=== PATIENT | female | born 1950 | race Caucasian/White ===

== ENCOUNTER 2017-05-19 01:56 | Emergency (ER) | payer BC, MEDICARE ==
[~2017-05-19] VITALS: Ht 160 cm; Wt 79.8 kg
[~2017-05-19 01:56] MED LIST: ATOR10TA PO; LEVO88TA2 PO; LISI-334 PO
[2017-05-19 02:13] VITALS: BP 235/116
[2017-05-19] MEDS ORDERED: TETRACAINE 0.5% OPHTH SOLUTION 4ML BOTTLE. ONE (02:42)
[2017-05-19] MEDS ORDERED: TETRACAINE 0.5% OPHTH SOLUTION 4ML BOTTLE. OS ONE (02:45)
[2017-05-19] MEDS ORDERED: HYDROcodone/APAP 5/325MG 1 TAB TABLET PO ONE (03:00)
[2017-05-19] MEDS ORDERED: ERYTHROMYCIN 0.5% OPHTH OINTMENT 1GM TUBE. OS ONE (03:00)
[2017-05-19] MEDS ORDERED: KETOROLAC 30 MG/ML INJ. IM ONE (03:00)
[2017-05-19] MEDS ORDERED: methylPREDNISolone SOD SUCC PF 125 MG/2 ML VIAL. IM ONE (03:00)
[2017-05-19] MEDS ORDERED: GENT5DRO3 OS (04:04)
--- NOTE | 2017-05-19 04:04 | PHYS DOC ---
Past Medical History Past Medical History: Cancer, Diabetes-Type II, High Cholesterol, Hypertension , Hypothyroid, Other Additional Past Medical Histor: ORAL CA, CATARACTS Past Surgical History: Cancer Surgery, Cholecystectomy, Hysterectomy, Tonsillectomy, Other Additional Past Surgical Histo: L. ARM Alcohol Use: Rarely Drug Use: None Adult General Chief Complaint Chief Complaint: EYE PROBLEMS HPI HPI 67-year-old female with a history of chronic recurrent blepharitis for many years now presents to the emergency department because of an episode of chronic recurrent blepharitis typical for her. Patient states her left eyelid has becomes red and swollen and sore. She has no fevers chills sweats or shaking chills. Her vision is baseline. She did not suffer any eye trauma states the symptoms are identical to previous episodes. Patient is under the care of an fluid designer long-term however she is not been seen for this episode. She describes that she typically gets antibiotics and with treatment it resolves spontaneously. She has no headache or stiff neck. Denies history of glaucoma. No other complaints Review of Systems Review of Systems Constitutional: Denies fever or chills [] Eyes: Denies change in visual acuity, redness, or eye pain [] HENT: Denies nasal congestion or sore throat [] Respiratory: Denies cough or shortness of breath [] Cardiovascular: No additional information not addressed in HPI [] GI: Denies abdominal pain, nausea, vomiting, bloody stools or diarrhea [] : Denies dysuria or hematuria [] Musculoskeletal: Denies back pain or joint pain [] Integument: Denies rash or skin lesions [] Neurologic: Denies headache, focal weakness or sensory changes [] Endocrine: Denies polyuria or polydipsia [] All other systems were reviewed and found to be within normal limits, except as documented in this note. Current Medications Current Medications Current Medications Medications (Trade) Dose Ordered Sig/Jean-Pierre Start Time Stop Time Status Last Admin Dose Admin Acetaminophen/ Hydrocodone Bitart (Lortab 5/325) 1 tab 1X ONCE 05/19/17 03:00 05/19/17 03:01 DC 05/19/17 03:14 1 TAB Erythromycin (Romycin) 0.25 inch 1X ONCE 05/19/17 03:00 05/19/17 03:01 DC 05/19/17 03:48 0.25 INCH Ketorolac Tromethamine (Toradol) 30 mg 1X ONCE 05/19/17 03:00 05/19/17 03:01 DC 05/19/17 03:15 30 MG Methylprednisolone Sodium Succinate (SOLU-Medrol 125MG VIAL) 125 mg 1X ONCE 05/19/17 03:00 05/19/17 03:01 DC 05/19/17 03:15 125 MG Tetracaine HCl (Tetracaine) 40 drop STK-MED ONCE 05/19/17 02:42 05/19/17 02:43 DC Allergies Allergies Allergies Coded Allergies Type Severity Reaction Last Updated Verified erythromycin base Allergy Unknown 05/19/17 Yes Physical Exam Physical Exam Alert well-appearing no acute distress. Left lower eyelid with erythema and mild edema. Scleral injection of the eye. Pupils unremarkable. Normal anterior chamber and normal appearing cornea. No foreign body under lids. Painless extraocular muscle excursion which is normal with full range of motion. No crepitus or fluctuance of face underneath I. Supple neck clear lungs regular rate and rhythm. Constitutional: Well developed, well nourished, no acute distress, non-toxic appearance. [] HENT: Normocephalic, atraumatic, bilateral external ears normal, oropharynx moist, no oral exudates, nose normal. [] Eyes: PERRLA, EOMI, right conjunctiva normal, no discharge. Left eye exam as above [] Neck: Normal range of motion, no tenderness, supple, no stridor. [] Cardiovascular:Heart rate regular rhythm, no murmur [] Lungs & Thorax: Bilateral breath sounds clear to auscultation [] Abdomen: Bowel sounds normal, soft, no tenderness, no masses, no pulsatile masses. [] Skin: Warm, dry, no erythema, no rash. [] Back: No tenderness, no CVA tenderness. [] Extremities: No tenderness, no cyanosis, no clubbing, ROM intact, no edema. [] Neurologic: Alert and oriented X 3, normal motor function, normal sensory function, no focal deficits noted. [] Psychologic: Affect normal, judgement normal, mood normal. [] Current Patient Data Vital Signs Vital Signs Date Time Temp Pulse Resp B/P (MAP) Pulse Ox O2 Delivery O2 Flow Rate FiO2 05/19/17 02:13 97.9 82 20 98 Room Air 97.9 EKG EKG [] Radiology/Procedures Radiology/Procedures [] Impressions: Left intraocular pressure 15 with Duarte-Pen performed by me. This result was reproducible. Course & Med Decision Making Course & Med Decision Making Pertinent Labs and Imaging studies reviewed. (See chart for details) Signs and symptoms consistent with typical episode of recurrent blepharitis for this patient. She had complete relief with Alcaine administration. Her vision is baseline. Intraocular pressure unremarkable. Discussed with patient impossible to rule out bacterial infection so antibiotic ointment and drops are prescribed. Patient agrees with this and states this is how she is typically treated. She is where the possibility of a viral etiology alone or even a solely inflammatory process. Patient is weren't critical importance of close follow-up with ophthalmology today or tomorrow. She agrees with outpatient follow-up and strict return precautions given Dragon Disclaimer Dragon Disclaimer This electronic medical record was generated, in whole or in part, using a voice recognition dictation system. Departure Departure Impression: Primary Impression: Blepharitis of left eye Disposition: HOME, SELF-CARE Condition: IMPROVED Referrals: NEETA ALVAREZ (PCP) Patient Instructions: Blepharitis Additional Instructions: You're suffering from blepharitis, as you have experienced many times before. Your intraocular pressure was normal today. Take 600 mg of ibuprofen every 6 hours if needed for discomfort. Apply 1/4 inch of anabiotic ointment in your eye 4 times a day and at bedtime. If you find the ointment too thick or gummy feeling, use antibiotic drops as prescribed 2 drops every 2 hours during the daytime and just use the ointment at bedtime. Follow-up with your fluid designer in 1 day. Scripts Gentamicin Sulfate (GENTAMICIN SULFATE 0.3% OPH SOLN) 5 Ml Drops 2 DROP OS Q 2hr during the day, #5 ML Prov: MAYURI ALVAREZ MD 05/19/17 MAYURI ALVAREZ MD May 19, 2017 04:04
== END 2017-05-19 04:09 | disposition home or self-care (01) ==
LOC: ER 01:56
DX: H01.006 Unspecified blepharitis left eye, unspecified eyelid (principal); E11.9 Type 2 diabetes mellitus without complications; E03.9 Hypothyroidism, unspecified; E78.00 Pure hypercholesterolemia, unspecified; I10 Essential (primary) hypertension; Z88.1 Allergy status to other antibiotic agents
CPT/HCPCS: 96372; 99284; J1885; J2930

== ENCOUNTER 2018-08-12 10:18 | Emergency (ER) | payer MEDICARE, OTHER ==
[~2018-08-12] VITALS: Ht 160 cm; Wt 67.1 kg
[~2018-08-12 10:18] MED LIST changes: +ASPI-630 PO; +ATORVASTATIN CA80 MG PO; +GENT5DRO3 OS; +HYPO40SP TP; +INSU100I32 SQ; +IRON1TAB PO; +LEVO137T3 PO; +OMEP40CA5 PO; +RANI300C PO; +TRIA15CR TP
[2018-08-12] MEDS ORDERED: cloNIDine HCL 0.1 MG TABLET ONE (10:49)
[2018-08-12] MEDS: cloNIDine HCL 0.1 MG TABLET PO ONE (10:53)
--- NOTE | 2018-08-12 14:29 | RAD ---
2 view bilateral rib detail series and PA view chest x-ray Clinical indications: Fell on ice. Pain and cough. Right RIBS: There are nondisplaced fractures of the lateral aspect of the right sixth and seventh and eighth ribs. Left RIBS: No acute left rib fracture is evident. Chest x-ray: No acute lung infiltrate or pleural effusion or pneumothorax is seen. Old granulomatous disease is seen. Heart size and mediastinum and pulmonary vasculature are unremarkable. IMPRESSION: Acute posttraumatic fractures of the lateral aspect of the right sixth and seventh and eighth ribs. Electronically signed by: Kendrick Jaimes MD (08/12/2018 2:25 PM) [facility]
[2018-08-12] MEDS ORDERED: HYDR-3164 PO (14:38)
--- NOTE | 2018-08-12 14:38 | PHYS DOC ---
Past Medical History Past Medical History: Cancer, Diabetes-Type II, High Cholesterol, Hypertension , Hypothyroid, Other Additional Past Medical Histor: Squamous cell carcinoma, CATARACTS Past Surgical History: Cancer Surgery, Cholecystectomy, Hysterectomy, Tonsillectomy, Other Additional Past Surgical Histo: Skin grafts LUE, removal of salivary glands Alcohol Use: Rarely Drug Use: None Adult General Chief Complaint Chief Complaint: MECHANICAL FALL HPI HPI Patient is a 68 year old female who presents with left rib pain after falling a few days ago. She states that she fell on her left knee as well, but that has stopped hurting. She states that the rib pain is fairly constant but worsens with movement or cough. She denies fever or SOA. Review of Systems Review of Systems Constitutional: Denies fever or chills [] Eyes: Denies change in visual acuity, redness, or eye pain [] HENT: Denies nasal congestion or sore throat [] Respiratory: See HPI Cardiovascular: No additional information not addressed in HPI [] GI: Denies abdominal pain, nausea, vomiting, bloody stools or diarrhea [] : Denies dysuria or hematuria [] Musculoskeletal: See HPI Integument: Denies rash or skin lesions [] Neurologic: Denies headache, focal weakness or sensory changes [] Endocrine: Denies polyuria or polydipsia [] All other systems were reviewed and found to be within normal limits, except as documented in this note. Current Medications Current Medications Current Medications Medications (Trade) Dose Ordered Sig/Jean-Pierre Start Time Stop Time Status Last Admin Dose Admin Clonidine HCl (Catapres) 0.1 mg STK-MED ONCE 08/12/18 10:49 08/12/18 10:51 DC Allergies Allergies Allergies Coded Allergies Type Severity Reaction Last Updated Verified erythromycin base Allergy Intermediate 03/01/18 Yes Physical Exam Physical Exam Constitutional: Well developed, well nourished, no acute distress, non-toxic appearance. [] HENT: Normocephalic, atraumatic, bilateral external ears normal, oropharynx moist, no oral exudates, nose normal. [] Eyes: PERRLA, EOMI, conjunctiva normal, no discharge. [] Neck: Normal range of motion, no tenderness, supple, no stridor. [] Cardiovascular:Heart rate regular rhythm, no murmur [] Lungs & Thorax: Bilateral breath sounds clear to auscultation, pain elicited with palpation or deep inspiration to left mid ribs, no gross deformity palpated [] Abdomen: Bowel sounds normal, soft, no tenderness, no masses, no pulsatile masses. [] Skin: Warm, dry, no erythema, no rash. [] Back: No tenderness, no CVA tenderness. [] Extremities: No tenderness, no cyanosis, no clubbing, ROM intact, no edema. [] Neurologic: Alert and oriented X 3, normal motor function, normal sensory function, no focal deficits noted. [] Psychologic: Affect normal, judgement normal, mood normal. [] Current Patient Data Vital Signs Vital Signs Date Time Temp Pulse Resp B/P (MAP) Pulse Ox O2 Delivery O2 Flow Rate FiO2 08/12/18 14:40 64 20 99 08/12/18 10:53 207/113 08/12/18 10:20 98.8 Room Air 98.8 EKG EKG [] Radiology/Procedures Radiology/Procedures []PATIENT: TIM RUSSELL CACCOUNT: [id number]#: [id number] : 1950 LOCATION: ER AGE: 68 SEX: F EXAM STATUS: REG ER ORD. PHYSICIAN: ALEX CORDOVA APRN REASON: fell on ice, pain and cough PROCEDURE: RIBS BILAT & PA CXR 4+V 2 view bilateral rib detail series and PA view chest x-ray Clinical indications: Fell on ice. Pain and cough. Right RIBS: There are nondisplaced fractures of the lateral aspect of the right sixth and seventh and eighth ribs. Left RIBS: No acute left rib fracture is evident. Chest x-ray: No acute lung infiltrate or pleural effusion or pneumothorax is seen. Old granulomatous disease is seen. Heart size and mediastinum and pulmonary vasculature are unremarkable. IMPRESSION: Acute posttraumatic fractures of the lateral aspect of the right sixth and seventh and eighth ribs. Electronically signed by: Kendrick Jaimes MD (08/12/2018 2:25 PM) [facility] Course & Med Decision Making Course & Med Decision Making Pertinent Labs and Imaging studies reviewed. (See chart for details) The patient has fractured ribs. She was given an incentive spirometer with teaching. She is to follow up with her PCP for a recheck in three days. She is to return the emergency department if worsening. She is in agreement with this plan. Dragon Disclaimer Dragon Disclaimer This electronic medical record was generated, in whole or in part, using a voice recognition dictation system. Departure Departure Impression: Primary Impression: Rib fractures Disposition: 01 HOME, SELF-CARE Condition: STABLE Referrals: NEETA ALVAREZ (PCP) Patient Instructions: Rib Fracture Additional Instructions: Take medication as directed. Do not drive or operate heavy machinery while taking this medication. Follow-up with your primary care provider for recheck in 3 days or return to the emergency department if worsening. Scripts Hydrocodone/Apap 5-325 (NORCO 5-325 TABLET) 1 Each Tablet 1 TAB PO PRN Q6HRS PRN for PAIN, #14 TAB 0 Refills Prov: ALEX CORDOVA APRN 08/12/18 ALEX CORDOVA APRN Aug 12, 2018 14:38
[2018-08-12 14:40] VITALS: BP 80/51
== END 2018-08-12 14:48 | disposition home or self-care (01) ==
LOC: ER 10:18
DX: S22.41XA Multiple fractures of ribs, right side, initial encounter for closed fracture (principal); E78.00 Pure hypercholesterolemia, unspecified; E03.9 Hypothyroidism, unspecified; E11.9 Type 2 diabetes mellitus without complications; I10 Essential (primary) hypertension; Z88.1 Allergy status to other antibiotic agents; W00.0XXA Fall on same level due to ice and snow, initial encounter; Y93.89 Activity, other specified; Y92.89 Other specified places as the place of occurrence of the external cause; Y99.8 Other external cause status
CPT/HCPCS: 71111; 99284